=== PATIENT | male | born 1995 | race Caucasian/White ===

== ENCOUNTER 2016-05-28 13:07 | Emergency (ER) | payer MEDICARE | END 2016-05-28 14:10 | disposition home or self-care (01) | LOC: ER 13:07 | DX: N39.0 Urinary tract infection, site not specified (principal); F17.210 Nicotine dependence, cigarettes, uncomplicated; Z79.899 Other long term (current) drug therapy | CPT/HCPCS: 96372; J0696 ==

== ENCOUNTER 2016-06-24 22:41 | Emergency (ER) | payer MEDICARE | END 2016-06-25 00:40 | disposition home or self-care (01) | LOC: ER 22:41 | DX: K08.89 Other specified disorders of teeth and supporting structures (principal); F17.210 Nicotine dependence, cigarettes, uncomplicated ==